=== PATIENT | male | born 2005 | race African-American/Black ===

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

== ENCOUNTER 2025-04-07 11:38 | Emergency (ER) | payer OTHER, SELFPAY ==
[2025-04-07 12:52] LABS: Bacteria/HPF None Seen HPF (None Seen); CAUTI Indications for Culture Dysuria,urgency,freq; Glucose, Urine (Dipstick) Normal (Negative); Leukocyte 25 Leu/uL (Negative); Protein, Urine (Dipstick) 20 mg/dL (Neg-Trace); RBC/HPF None Seen HPF (0-3); Specific Gravity, Urine 1.028 (1.002-1.036)
[2025-04-07 12:54] LABS: Urine Culture Reflex No No
[2025-04-07] MEDS ORDERED: Lidocaine 1% PF 5 ML VIAL ONE (13:21)
[2025-04-07] MEDS ORDERED: cefTRIAXone (ROCEPHIN) 500 MG VIAL ONE (13:22)
[2025-04-08 04:27] LABS: Chlam.trachomatis by PCR,Urine DETECTED (NotDetected); GC N.gonorrhoeae PCR,UrineVOID Not Detected (NotDetected)
== END 2025-04-07 13:27 | disposition home or self-care (01) ==
LOC: ERS 11:38
DX: A64 Unspecified sexually transmitted disease (principal); R36.9 Urethral discharge, unspecified; R30.0 Dysuria
CPT/HCPCS: 81001; 87491; 87591; 96372; 99283; J0696

== ENCOUNTER 2025-05-05 12:15 | Emergency (ER) | payer SELFPAY ==
[2025-05-05] MEDS ORDERED: Acetaminophen 500 MG TAB ONE (12:23)
[2025-05-05] MEDS ORDERED: Ibuprofen 200 MG TAB ONE (12:23)
== END 2025-05-05 14:42 | disposition home or self-care (01) ==
LOC: ERS 12:15
DX: R05.1 Acute cough (principal); F17.290 Nicotine dependence, other tobacco product, uncomplicated
CPT/HCPCS: 87081; 87426; 87430; 99283; Q0162